=== PATIENT | female | born 1985 | race Caucasian/White ===

== ENCOUNTER → 2019-11-19 12:56 | Outpatient (CLI) | payer OTHER | END | disposition home or self-care (01) | LOC: D.MRI 12:56 | PROVIDERS: ATTEND Orthopaedic Surgery | DX: M54.12 Radiculopathy, cervical region (principal) ==

== ENCOUNTER 2019-11-26 10:22 | Day surgery (SDC) | payer OTHER ==
[~2019-11-26] VITALS: Ht 162.6 cm; Wt 99.8 kg
[~2019-11-26 10:22] MED LIST: CHLORTHALIDONE25 MG PO; GLUCOPHAGE500 MG PO; LEXAPRO20 MG PO; OMEPRAZOLE CAP 20M PO
[2019-11-26 10:30] LABS: HEMATOCRIT 43.1 % (36.0-48.0); HEMOGLOBIN 14.6 g/dL (12-16); MCH 28.3 pg (26.0-34.0); MCHC 33.9 g/dL (31.0-37.0); MCV 83.7 fL (80.0-100.0); MEAN PLATELET VOLUME 8.8 fL (7.4-10.4); RBC 5.15 10x6/uL (4.00-5.40); RDW 13.8 % (11.5-14.5); WBC 7.1 10x3/uL (4.8-10.8)
[2019-11-26 10:42] LABS: UREA NITROGEN 13 mg/dL (7-18)
[2019-11-26 10:49] LABS: CALC OSMOLALITY 282 mosm/kg (275-300); CALCIUM 9.3 mg/dL (8.5-10.1); CARBON DIOXIDE 33.3 mmol/L (21.0-32.0); CHLORIDE - SERUM 100 mmol/L (98-107); CREATININE - SERUM 0.7 mg/dL (0.6-1.3); GLUCOSE 100 mg/dL (74-106); SODIUM 142 mmol/L (136-145); eGFR NON AFRICAN AMERICAN > 90 mL/min (90-120)
[2019-11-26 13:33] VITALS: BP 128/78; Ht 162.6 cm; Wt 99.8 kg
[2019-11-26] MEDS ORDERED: TYLENOL W/CODEI1 TAB PO (14:40)
--- NOTE | 2019-11-26 17:58 | NUR ---
1720 IV REMOVED AND PRESSURE HELD. 1730 INSTRUCTIONS GIVEN
--- NOTE | 2019-11-26 17:59 | NUR ---
1800 PT VOIDED IN BATHROOM
--- NOTE | 2019-11-27 10:46 | OP ---
PATIENT NAME: SHAHBAZ ROMERO MEDICAL RECORD: [id number] :83 LOCATION:[facility] ADMISSION DATE: SURGEON: YVES VALLE DO DATE OF OPERATION: 11/26/2019 PROCEDURE PERFORMED: Left endoscopic carpal tunnel release. PREOPERATIVE DIAGNOSIS: Left carpal tunnel syndrome. POSTOPERATIVE DIAGNOSIS: Left carpal tunnel syndrome. INDICATIONS: Ms. Romero is a 34-year-old female who I saw while she was with twins, with carpal tunnel syndrome. I injected them at that time and did not help. She got a nerve conduction study and it showed carpal tunnel syndrome of bilateral carpal tunnels. She wants the left one done first. I informed of the risks including infection, bleeding, damage to nerves and vessels, specifically the transligamentous nerve of the median nerve variance that I may not be able to see it if I did it this way and damage to the recurrent motor branch of the thenar eminence or the adductor pollicis. She is okay with all that, was aware of those risks and signed a consent. SURGEON: Yves Valle DO DESCRIPTION OF SURGERY: The patient was taken to the operative suite, laid in supine position, given general anesthetic and LMA was placed. She was given 2 grams Ancef preoperatively. The left upper extremity was prepped and draped in sterile fashion. A timeout was performed and everyone was in agreement with the correct site, side, patient and procedure. We then began by exsanguinating the left upper extremity with an Esmarch, tourniquet was then inflated to 250 mmHg, was up for 10 minutes. Main incision was centered over the palmaris longus tendon about a centimeter in length, made blunt dissection down with Tiffany to the median nerve. I then released the forearm fascia from distal to proximal with approximately a centimeter and then entered the carpal tunnel with the dilators and then put the sheath in having the median nerve below the sheath. I then brought the camera in and used a rasp and a probe to ensure there was no transligamentous nerve and did not see one. I then brought the blade and raised it up and transected the transverse carpal ligament, fat then herniated down into the carpal tunnel and then removed all the tools, and with the long end of the Ragnell and scissors, released any other remaining fibers of the transverse carpal ligament. I then injected the site. Tourniquet was then deflated at 10 minutes and any bleeding was stopped by holding pressure. Edda East, certified surgical specialist, then closed the site with 5-0 Monocryl in inverted interrupted fashion. Steri-Strips, Adaptic, 4 x 4, Kerlix, and Coban was lightly wrapped on the hand. She was then awakened and taken to recovery in stable condition. BLOOD LOSS: Minimal. COMPLICATIONS: None. TRANSINT:[id number] Voice Confirmation ID: [id number] DOCUMENT ID: [id number] OPERATIVE REPORT [id number] SHAHBAZ ROMERO MICHAEL D, DO at 1046 CC: [id number] DICTATION DATE: 11/26/19 1619 [employer]ER: 11/27/19 0056 [facility] 11/26/19 [facility] [address] [place] [address]
== END 2019-11-26 18:15 | disposition home or self-care (01) ==
LOC: D.OPS 10:22 → D.PAN 13:45 → D.OPS 13:45 → D.PAN 16:40 → D.OPS 17:30
PROVIDERS: Anesthesiology; ATTEND Orthopaedic Surgery
DX: G56.02 Carpal tunnel syndrome, left upper limb (principal); E11.9 Type 2 diabetes mellitus without complications; K21.9 Gastro-esophageal reflux disease without esophagitis

== ENCOUNTER 2019-12-10 05:32 | Day surgery (SDC) | payer OTHER ==
[~2019-12-10] VITALS: Ht 162.6 cm; Wt 100.0 kg
[~2019-12-10 05:32] MED LIST changes: +TYLENOL W/CODEI1 TAB PO
[2019-12-10 06:19] VITALS: BP 115/67; Ht 162.6 cm; Wt 100.0 kg
[2019-12-10 06:21] LABS: HCG SERUM NEGATIVE (NEGATIVE)
[2019-12-10 06:28] LABS: CALC OSMOLALITY 280 mosm/kg (275-300); CALCIUM 9.2 mg/dL (8.5-10.1); CARBON DIOXIDE 30.7 mmol/L (21.0-32.0); CHLORIDE - SERUM 101 mmol/L (98-107); CREATININE - SERUM 0.6 mg/dL (0.6-1.3); GLUCOSE 109 mg/dL (74-106); SODIUM 140 mmol/L (136-145); UREA NITROGEN 14 mg/dL (7-18); eGFR NON AFRICAN AMERICAN > 90 mL/min (90-120)
--- NOTE | 2019-12-10 14:52 | OP ---
PATIENT NAME: SHAHBAZ ROMERO MEDICAL RECORD: [id number] :83 LOCATION:[facility] ADMISSION DATE: SURGEON: YVES VALLE DO DATE OF OPERATION: 12/10/2019 PROCEDURE PERFORMED: Right endoscopic carpal tunnel release. PREOPERATIVE DIAGNOSIS: Right carpal tunnel syndrome. POSTOPERATIVE DIAGNOSIS: Right carpal tunnel syndrome. INDICATIONS: Ms. Romero is a 34-year-old female who has had bilateral carpal tunnel for quite some time. She had it while she was with twins and it did not subside. She had nerve conduction studies that indicated that. She had a left carpal tunnel release 2 weeks ago, wanted the right one done today. I informed her of the risks including infection, bleeding, damage to the median nerve and accessory nerves, palmar cutaneous branch, continued numbness and tingling in the fingers and she signed the consent. SURGEON: Yves Valle DO DESCRIPTION OF PROCEDURE: The patient was taken to the operative suite, laid in supine position, given general anesthetic, given 2 grams of Ancef preoperatively. Right upper extremity was then prepped and draped in sterile fashion. Timeout was performed, everyone was in agreeance with the correct side, site, patient and procedure. The patient had an LMA placed after being sedated. After a timeout was performed, the right upper extremity was exsanguinated with an Esmarch, tourniquet was inflated to 250 mmHg, it was up for 10 minutes. I then made an incision over the volar wrist crease and made with a 15-blade scalpel and then made a blunt dissection with two Ragnell down to the median nerve, released the fascia from [id number] through the incision and then entered the dilators into the carpal tunnel. I then brought in the sheath and then the camera was entered into it, got a good view of the transverse carpal ligament and brought in a rasp and a probe. I did not see any transligamentous nerve. I then brought in the blade, raised it up and transected the very thick transverse carpal ligament fat then herniated down into the carpal tunnel. I then removed the instruments and using a long end of the Ragnell and a scissors spread any remaining fibers of the transverse carpal ligament. I then injected the site with 10 mL of 0.25% Marcaine with epinephrine and then the tourniquet was let down. Ran Pablo, certified scrub tech then closed the wound with 5-0 Monocryl in an inverted interrupted fashion and placed Dermabond glue on it. She was then dressed with Adaptic, 4 x 4s, Kerlix and Coban lightly wrapped on the hand. She was awakened and taken to recovery in stable condition. BLOOD LOSS: Minimal. COMPLICATIONS: None. TRANSINT:[id number] Voice Confirmation ID: [id number] DOCUMENT ID: [id number] OPERATIVE REPORT [id number] SHAHBAZ ROMERO,YVES Leach DO at 1452 CC: [id number] DICTATION DATE: 12/10/19 0719 [employer]: 12/10/19 1255 [facility] 12/10/19 [id number] [place] [address]
== END 2019-12-10 08:52 | disposition home or self-care (01) ==
LOC: D.OPS 05:32 → D.PAN 13:00
PROVIDERS: Anesthesiology; ATTEND Orthopaedic Surgery
DX: G56.01 Carpal tunnel syndrome, right upper limb (principal); K21.9 Gastro-esophageal reflux disease without esophagitis; E11.9 Type 2 diabetes mellitus without complications; Z79.84 Long term (current) use of oral hypoglycemic drugs